=== PATIENT | female | born 1960 | race American Indian/Alaskan Native ===

== ENCOUNTER 2017-01-19 13:17 | Emergency (ER) | payer OTHER ==
[2017-01-19 14:50] LABS: Basophils % (Auto) 0.4 % (0.0-1.8); Eosinophils % (Auto) 0.3 % (0.0-4.3); Hematocrit 51.2 % (30.3-42.9); Hemoglobin 16.5 gm/dl (10.1-14.3); Mean Corpuscular HGB Conc 32 % (30-34); Mean Corpuscular Hemoglobin 30 pg (28-32); Mean Corpuscular Volume 93 fl (79-97); Platelet Count 208 K/mm3 (140-440); Red Blood Count 5.53 M/mm3 (3.65-5.03); Red Cell Distribution Width 15.3 % (13.2-15.2); White Blood Count 10.6 K/mm3 (4.5-11.0)
[2017-01-19 15:33] LABS: Bacteria,Urine 4+ /HPF (Negative); Bilirubin,Urine NEG (Negative); Blood,Urine NEG (Negative); Ketones,Urine TR mg/dL (Negative); Leukocyte Esterase,Urine NEG (Negative); Mucus,Urine 3+ /HPF; Nitrite,Urine NEG (Negative); Red Blood Cell Casts,Urine 5 /LPF; Urobilinogen,Urine < 2.0 mg/dL (<2.0)
[2017-01-19 15:46] LABS: Alanine Aminotransferase 187 units/L (7-56); Albumin 4.6 g/dL (3.9-5); Albumin/Globulin Ratio 1.2 %; Alkaline Phosphatase 64 units/L (35-129); BUN/Creatinine Ratio 9.09; Bilirubin,Total 0.5 mg/dL (0.1-1.2); Blood Urea Nitrogen 10 mg/dL (7-17); Calcium 8.3 mg/dL (8.4-10.2); Carbon Dioxide 19 mmol/L (22-30); Glucose 92 mg/dL (65-100); Lipase 64 units/L (13-60); Total Protein 8.3 g/dL (6.3-8.2)
[2017-01-19 15:47] LABS: Anion Gap 23 mmol/L; Chloride 101.3 mmol/L (98-107); Potassium 3.6 mmol/L (3.6-5.0); Sodium 140 mmol/L (137-145)
[2017-01-19] MEDS ORDERED: NACL 0.9% 1000 ML 1,000 ML IV ONE (17:46)
--- NOTE | 2017-01-19 17:49 | Emergency Department Report ---
Chief Complaint: Abdominal Pain Stated Complaint: UNABLE TO EAT SOLID FOODS Time Seen by Provider: 01/19/17 17:46 - HPI History of Present Illness: PT c/o n/v/d since Tuesday. PT states it started after eating left overs for lunch. - ROS Review of Systems: + fever + n/v/d - dysuria - Exam Vital Signs: Vital Signs 01/19/17 14:05 Temperature 98.5 F Pulse Rate 136 H Respiratory 16 Rate Blood Pressure 107/74 O2 Sat by Pulse 98 Oximetry Physical Exam: pt looks well, non toxic. abd is soft and non-tender MSE screening note: Focused history and physical exam performed. Due to findings the following was ordered: labs reviewed US ordered. ED Medical Decision Making - Lab Data Result diagrams: 01/19/17 14:36 01/19/17 14:36 ED Disposition for MSE Condition: Stable Instructions: Abdominal Pain (ED)
--- NOTE | 2017-01-19 19:16 | Ultrasound Report ---
FINAL REPORT EXAM: US ABDOMEN LIMITED HISTORY: vomiting, elevated lfts TECHNIQUE: Directed sonography of the right upper quadrant. PRIORS: None. FINDINGS: Gallbladder is of normal size and echogenicity without evidence of calculi. Wall thickness within normal limits. Intra-and extrahepatic bile ducts are of normal caliber. Liver has diffusely increased echogenicity without focal abnormalities. Right kidney measures 12.2 cm in longest dimension and is grossly unremarkable. Visualized pancreatic parenchyma grossly unremarkable. IMPRESSION: 1. Findings compatible with fatty infiltration in the liver. 2. Otherwise, unremarkable.
[2017-01-19] MEDS ORDERED: NACL 0.9% 1000 ML 1,000 ML ONE (21:54)
[2017-01-19] MEDS ORDERED: DILAUDID IV ONE (22:50)
[2017-01-19] MEDS ORDERED: VITAMIN B-1 100 MG, FOLVITE 1 MG, INFUVITE 10 ML in NACL 0.9% 1000 ML 1,000 ML IV ONE (22:50)
[2017-01-19] MEDS ORDERED: ZOFRAN IV ONE (22:50)
--- NOTE | 2017-01-20 00:43 | Cat Scan Report ---
FINAL REPORT PROCEDURE: CT ABDOMEN PELVIS WO CON TECHNIQUE: Computerized axial tomography of the abdomen and pelvis was performed without intravenous contrast. This study is performed without intravascular contrast material and its sensitivity for abdominal and pelvic pathology, including neoplasms, inflammation, abscess, free fluid, thrombosis, arterial dissection and infarction, is reduced compared with a contrast enhanced study. HISTORY: n,v,d, abd pain epigastric pain COMPARISON: 09/10/2010 FINDINGS: Visualized lower thorax: There is a tiny calcified granuloma at the right lung base.. Liver: Normal size and attenuation. Spleen: Normal size and attenuation. Gallbladder and biliary system: Normal. Pancreas: Normal. Adrenals: Normal. Kidneys: There is a calcified cortical lesion in the left kidney measuring 9 millimeters. There is a 4 millimeter nonobstructing stone in the midpole the left kidney. These lesions are new since the prior study. There is no hydronephrosis. GI tract: There is no bowel obstruction, colitis or enteritis. The appendix is normal.. Lymph nodes and mesentery: Normal. Vasculature: Normal. Bladder: Normal. Reproductive organs: Uterus and ovaries are unremarkable.. Peritoneum: There is no ascites, free air, abscess or adenopathy.. Musculoskeletal structures: No significant abnormality. Other: None. IMPRESSION: There is a calcified cortical lesion in the left kidney measuring 9 millimeters. There is a 4 millimeter nonobstructing stone in the midpole the left kidney. These lesions are new since the prior study. There is no hydronephrosis. There is no bowel obstruction, colitis or enteritis. The appendix is normal.. Uterus and ovaries are unremarkable.. There is no ascites, free air, abscess or adenopathy. .
[2017-01-20] MEDS ORDERED: MAGNESIUM SULFATE 2GM/50ML 2 GM/50 ML BAG IV ONE (01:07)
--- NOTE | 2017-01-20 01:12 | Emergency Department Report ---
ED N/V/D HPI - General Chief complaint: Abdominal Pain Stated complaint: UNABLE TO EAT SOLID FOODS Time Seen by Provider: 01/19/17 17:46 Source: patient Mode of arrival: Ambulatory Limitations: No Limitations - History of Present Illness Initial comments: 56 yo female the past medical history of diabetes, GERD, hypertension, and hiatal hernia presents to the hospital complaints of abdominal pain, nausea, vomiting, and diarrhea since January 17. This complains of intermittent mid abdominal cramping as well as cramping to arms and legs. Pain is rated moderate to severe in intensity. Worse with palpation. No alleviating factors. Patient vomits when she eats food but is able to tolerate liquids but it causes her to have diarrhea shortly after any by mouth intake. Patient admits to daily alcohol use. She has a glass of liquor daily at night to help her sleep. She denies history of alcohol withdrawal seizures or tremors. No persistent hematemesis, melena, hematochezia, recent travel, fevers, sick contacts, or antibiotics. Previous abdominal surgery includes . Last alcohol drink was 4 days ago prior to symptom onset. - Related Data Previous Rx's Medication Instructions Recorded Last Taken Type Famotidine [Pepcid] 20 mg PO BID #20 tablet 01/20/17 Unknown Rx HYDROcodone/APAP 5-325 [[place] 1 each PO Q6HR PRN #15 tablet 01/20/17 Unknown Rx 5/325] Loperamide [Imodium] 2 mg PO Q2HR PRN #20 capsule 01/20/17 Unknown Rx Ondansetron [Zofran Odt] 4 mg PO Q8HR PRN #20 tab.rapdis 01/20/17 Unknown Rx hydrOXYzine PAMOATE [Vistaril] 50 mg PO QHS PRN #20 capsule 01/20/17 Unknown Rx Allergies Allergy/AdvReac Type Severity Reaction Status Date / Time Iodinated Contrast Media - AdvReac WHEEZING Verified 01/19/17 14:07 IV Dye ED Review of Systems ROS: Stated complaint: UNABLE TO EAT SOLID FOODS Other details as noted in HPI Comment: All other systems reviewed and negative Other: Constitutional: No fevers chills Eyes: No eye pain visual changes ENT: No ear pain or throat pain Neck: Denies pain Respiratory: Denies cough wheezing shortness of breath Cardiovascular: Denies chest pain, palpitations, syncope GI: As per HPI : Denies dysuria, urinary frequency, or urgency Musculoskeletal: Denies back pain, joint swelling Skin: Denies rash, lesions, erythema Neurologic: Denies headache, numbness, weakness Psychiatric: Denies suicidal ideation, hallucinations ED Past Medical Hx - Past Medical History Hx Hypertension: Yes Hx Diabetes: Yes Hx GERD: Yes Hx Arthritis: Yes Additional medical history: HIATAL HERNIA - Surgical History Hx Breast Surgery: Yes (BREAST REDUCTION) Additional Surgical History: . LEFT SHOULDER. GANGLIAN CYST REMOVED LEFT WRIST. TONSILLECTOMY. TUBAL LIGATION - Social History Smoking Status: Unknown if ever smoked Substance Use Type: None - Medications Home Medications: Home Medications Medication Instructions Recorded Confirmed Last Taken Type Famotidine [Pepcid] 20 mg PO BID #20 tablet 01/20/17 Unknown Rx HYDROcodone/APAP 5-325 [[place] 1 each PO Q6HR PRN #15 tablet 01/20/17 Unknown Rx 5/325] Loperamide [Imodium] 2 mg PO Q2HR PRN #20 capsule 01/20/17 Unknown Rx Ondansetron [Zofran Odt] 4 mg PO Q8HR PRN #20 tab.rapdis 01/20/17 Unknown Rx hydrOXYzine PAMOATE [Vistaril] 50 mg PO QHS PRN #20 capsule 01/20/17 Unknown Rx ED Physical Exam - General Limitations: No Limitations - Other Other exam information: General: No limitations, patient is alert in no acute distress Head exam: Atraumatic, normocephalic Eyes exam: Normal appearance, nonicteric sclera ENT: Moist mucous membrane, normal oropharynx Neck exam: Normal inspection, full range of motion, no meningismus nontender Respiratory exam: Clear to auscultation bilateral, no wheezes, rales, crackles Cardiovascular: Normal rate and rhythm, normal heart sounds Abdomen: Soft, nondistended, generalized tenderness greatest in the right upper quadrant, no rebound or guarding Extremity: Full range of motion normal inspection no deformity Back: Normal Inspection, full range of motion, no tenderness Neurologic: Alert, oriented x3, cranial nerves intact, no motor or sensory deficit Psychiatric: normal affect, normal mood Skin: Warm, dry, intact ED Course Vital Signs 01/19/17 01/19/17 01/19/17 14:05 21:42 22:50 Temperature 98.5 F Pulse Rate 136 H 104 H 96 H Respiratory 16 18 17 Rate Blood Pressure 107/74 Blood Pressure 137/86 115/76 [Left] O2 Sat by Pulse 98 100 98 Oximetry 01/20/17 01/20/17 01:53 02:52 Temperature Pulse Rate 82 Respiratory 18 18 Rate Blood Pressure Blood Pressure 105/70 [Left] O2 Sat by Pulse 100 Oximetry - Reevaluation(s) Reevaluation #1: 01/20/17 03:44 Patient reports much better with treatment. Tachycardia has improved. She received normal saline, Zofran, Dilaudid, banana bag, and IV magnesium. 01/20/17 03:44 ED Medical Decision Making - Lab Data Result diagrams: 01/19/17 14:36 01/19/17 14:36 Lab Results 01/19/17 01/19/17 01/19/17 Range/Units 14:36 14:36 14:36 WBC 10.6 (4.5-11.0) K/mm3 RBC 5.53 H (3.65-5.03) M/mm3 Hgb 16.5 H (10.1-14.3) gm/dl Hct 51.2 H (30.3-42.9) % MCV 93 (79-97) fl MCH 30 (28-32) pg MCHC 32 (30-34) % RDW 15.3 H (13.2-15.2) % Plt Count 208 (140-440) K/mm3 Lymph % (Auto) 31.3 (13.4-35.0) % [place] % (Auto) 8.6 H (0.0-7.3) % Eos % (Auto) 0.3 (0.0-4.3) % Baso % (Auto) 0.4 (0.0-1.8) % Lymph # 3.3 (1.2-5.4) K/mm3 [place] # 0.9 H (0.0-0.8) K/mm3 Eos # 0.0 (0.0-0.4) K/mm3 Baso # 0.0 (0.0-0.1) K/mm3 Seg Neutrophils % 59.4 (40.0-70.0) % Seg Neutrophils # 6.3 (1.8-7.7) K/mm3 Sodium 140 (137-145) mmol/L Potassium 3.6 (3.6-5.0) mmol/L Chloride 101.3 (98-107) mmol/L Carbon Dioxide 19 L (22-30) mmol/L Anion Gap 23 mmol/L BUN 10 (7-17) mg/dL Creatinine 1.1 (0.7-1.2) mg/dL Estimated GFR > 60 ml/min BUN/Creatinine Ratio 9.09 % Glucose 92 (65-100) mg/dL Calcium 8.3 L (8.4-10.2) mg/dL Magnesium 1.4 L (1.7-2.3) mg/dL Total Bilirubin 0.5 (0.1-1.2) mg/dL AST 504 H (5-40) units/L ALT 187 H (7-56) units/L Alkaline Phosphatase 64 (35-129) units/L Total Protein 8.3 H (6.3-8.2) g/dL Albumin 4.6 (3.9-5) g/dL Albumin/Globulin Ratio 1.2 % Lipase 64 H (13-60) units/L Urine Color (Yellow) Urine Turbidity (Clear) Urine pH (5.0-7.0) Ur Specific [place] (1.003-1.030) Urine Protein (Negative) mg/dL Urine Glucose (UA) (Negative) mg/dL Urine Ketones (Negative) mg/dL Urine Blood (Negative) Urine Nitrite (Negative) Urine Bilirubin (Negative) Urine Urobilinogen (<2.0) mg/dL Ur Leukocyte Esterase (Negative) Urine WBC (Auto) (0.0-6.0) /HPF Urine RBC (Auto) (0.0-6.0) /HPF U Epithel Cells (Auto) (0-13.0) /HPF Urine Bacteria (Auto) (Negative) /HPF Hyaline Casts /LPF RBC Casts /LPF Urine Mucus /HPF 01/19/ Range/Units 15:17 WBC (4.5-11.0) K/mm3 RBC (3.65-5.03) M/mm3 Hgb (10.1-14.3) gm/dl Hct (30.3-42.9) % MCV (79-97) fl MCH (28-32) pg MCHC (30-34) % RDW (13.2-15.2) % Plt Count (140-440) K/mm3 Lymph % (Auto) (13.4-35.0) % [place] % (Auto) (0.0-7.3) % Eos % (Auto) (0.0-4.3) % Baso % (Auto) (0.0-1.8) % Lymph # (1.2-5.4) K/mm3 [place] # (0.0-0.8) K/mm3 Eos # (0.0-0.4) K/mm3 Baso # (0.0-0.1) K/mm3 Seg Neutrophils % (40.0-70.0) % Seg Neutrophils # (1.8-7.7) K/mm3 Sodium (137-145) mmol/L Potassium (3.6-5.0) mmol/L Chloride (98-107) mmol/L Carbon Dioxide (22-30) mmol/L Anion Gap mmol/L BUN (7-17) mg/dL Creatinine (0.7-1.2) mg/dL Estimated GFR ml/min BUN/Creatinine Ratio % Glucose (65-100) mg/dL Calcium (8.4-10.2) mg/dL Magnesium (1.7-2.3) mg/dL Total Bilirubin (0.1-1.2) mg/dL AST (5-40) units/L ALT (7-56) units/L Alkaline Phosphatase (35-129) units/L Total Protein (6.3-8.2) g/dL Albumin (3.9-5) g/dL Albumin/Globulin Ratio % Lipase (13-60) units/L Urine Color [place] (Yellow) Urine Turbidity Cloudy (Clear) Urine pH 5.0 (5.0-7.0) Ur Specific [place] 1.030 (1.003-1.030) Urine Protein 100 mg/dl (Negative) mg/dL Urine Glucose (UA) Neg (Negative) mg/dL Urine Ketones Tr (Negative) mg/dL Urine Blood Neg (Negative) Urine Nitrite Neg (Negative) Urine Bilirubin Neg (Negative) Urine Urobilinogen < 2.0 (<2.0) mg/dL Ur Leukocyte Esterase Neg (Negative) Urine WBC (Auto) 1.0 (0.0-6.0) /HPF Urine RBC (Auto) 2.0 (0.0-6.0) /HPF U Epithel Cells (Auto) 15.0 H (0-13.0) /HPF Urine Bacteria (Auto) 4+ (Negative) /HPF Hyaline Casts 13 /LPF RBC Casts 5 /LPF Urine Mucus 3+ /HPF - Radiology Data Radiology results: report reviewed (ct a/p noncontrast: calcified cortical lesion in the left kidney 9mm, 4 mm nonobstructing stone. These are new since last study. No other significant findings) - Medical Decision Making Patient has elevated LFTs specifically AST over ALT which correlates with patient's daily alcohol use. Patient was counseled on the importance of decreasing or stopping her alcohol use. Outpatient mental health will be provided since patient is having trouble sleeping and stress. Outpatient follow -up will be recommended as well with primary care doctor. Medications will be prescribed for patient's acute gastroenteritis - Differential Diagnosis gastroenteritis, pancreatitis, hepatitis, alcohol abuse Critical Care Time: No Critical care attestation.: If time is entered above; I have spent that time in minutes in the direct care of this critically ill patient, excluding procedure time. ED Disposition Clinical Impression: Acute gastroenteritis, Alcohol abuse, daily use, Elevated liver enzymes, Hypomagnesemia, Calculus of left kidney Disposition: DISCHARGED TO HOME OR SELFCARE Is pt being admited?: No Does the pt Need Aspirin: No Condition: Stable Instructions: Gastroenteritis (ED), Abuse of Alcohol (ED), Hypomagnesemia (ED) , Kidney Stones (ED) Additional Instructions: Take the medication as prescribed and return if symptoms worsen. Follow-up with the clinic and/or doctors provided. Prescriptions: Famotidine [Pepcid] 20 mg PO BID #20 tablet HYDROcodone/APAP 5-325 [[place] 5/325] 1 each PO Q6HR PRN #15 tablet PRN Reason: Pain hydrOXYzine PAMOATE [Vistaril] 50 mg PO QHS PRN #20 capsule PRN Reason: Insomnia Loperamide [Imodium] 2 mg PO Q2HR PRN #20 capsule PRN Reason: Diarrhea Ondansetron [Zofran Odt] 4 mg PO Q8HR PRN #20 tab.rapdis PRN Reason: Nausea And Vomiting Referrals: PRIMARY CARE, [Primary Care Provider] - 3-5 Days MARIMAR HOLT MD [Staff Physician] - 3-5 Days [facility] [Outside] - 3-5 Days Time of Disposition: 03:53
[2017-01-20 02:53] VITALS: BP 105/70
== END 2017-01-20 04:00 | disposition home or self-care (01) ==
LOC: ED 13:17
DX: K52.9 Noninfective gastroenteritis and colitis, unspecified (principal); F10.10 Alcohol abuse, uncomplicated; E83.42 Hypomagnesemia; N20.0 Calculus of kidney; E78.89 Other lipoprotein metabolism disorders; I10 Essential (primary) hypertension; E11.9 Type 2 diabetes mellitus without complications; M19.90 Unspecified osteoarthritis, unspecified site; K21.9 Gastro-esophageal reflux disease without esophagitis; K44.9 Diaphragmatic hernia without obstruction or gangrene; Z90.89 Acquired absence of other organs; Z88.8 Allergy status to other drugs, medicaments and biological substances
CPT/HCPCS: 36415; 74176; 76705; 80053; 81001; 83690; 83735; 85025; 96361; 96365; 96367; 96375; 99284; J1170; J2405; J3411; J3475; J7030

== ENCOUNTER 2017-10-20 14:11 | Outpatient (CLI) | payer OTHER ==
--- NOTE | 2017-10-20 16:27 | Mammography Report ---
BILATERAL DIGITAL SCREENING MAMMOGRAM with CAD: 10/20/17 14:11:00 CLINICAL: Routine screening. COMPARISON: 07/10/10 FINDINGS: There are bilateral scattered areas of fibroglandular density.No mass, architectural distortion or suspicious calcifications. IMPRESSION: No mammographic evidence of malignancy. BI-RADS CATEGORY: 2 -- Benign RECOMMENDATION: Routine mammographic screening in one year. COMMENT: Patient follow-up letters are generated by our [employer] application.
== END 2017-10-20 14:12 | disposition home or self-care (01) ==
LOC: MAMMO 14:11
PROVIDERS: ATTEND Internal Medicine
DX: Z12.31 Encounter for screening mammogram for malignant neoplasm of breast (principal)
CPT/HCPCS: 77067; G0202

== ENCOUNTER 2018-10-27 10:50 | Outpatient (CLI) | payer OTHER ==
--- NOTE | 2018-10-27 14:40 | Mammography Report ---
BILATERAL DIGITAL SCREENING MAMMOGRAM with CAD: 10/27/18 10:50:00 CLINICAL: Routine screening. COMPARISON:10/20/17 FINDINGS: There are scattered areas of fibroglandular density.A few bilateral scattered benign calcifications. No mass, architectural distortion or suspicious calcifications. IMPRESSION: No mammographic evidence of malignancy. BI-RADS CATEGORY: 2 -- Benign RECOMMENDATION: Routine mammographic screening in one year. COMMENT: Patient follow-up letters are generated by our [employer] application.
== END 2018-10-27 10:51 | disposition home or self-care (01) ==
LOC: MAMMO 10:50
PROVIDERS: ATTEND Internal Medicine
DX: Z12.31 Encounter for screening mammogram for malignant neoplasm of breast (principal); I10 Essential (primary) hypertension; K21.9 Gastro-esophageal reflux disease without esophagitis; M19.90 Unspecified osteoarthritis, unspecified site
CPT/HCPCS: 77067

== ENCOUNTER 2018-12-17 09:23 | Emergency (ER) | payer OTHER ==
[2018-12-17 09:30] VITALS: BP 191/107
--- NOTE | 2018-12-17 09:41 | Emergency Department Report ---
ED Recheck HPI - General Chief Complaint: Recheck/Abnormal Lab/Rx Stated Complaint: LOW POTASSIUM Time Seen by Provider: 12/17/18 09:38 Source: patient Mode of arrival: Ambulatory Limitations: No Limitations - History of Present Illness Initial Comments: states had routine labs Tuesday called and told to come to ED due to low K unsure of level feels fine, no complaints, no recent illness no diuretics normally takes losartan but has not yet today Complaint: abnormal lab -: Gradual, days(s) Returns Today for: CBOAL Description of Abnormal Result: hypoK Symptoms Since Prior Visit: no new symptoms Associated Symptoms: none - Related Data Previous Rx's Medication Instructions Recorded Last Taken Type Famotidine [Pepcid] 20 mg PO BID #20 tablet 01/20/17 Unknown Rx HYDROcodone/APAP 5-325 [[place] 1 each PO Q6HR PRN #15 tablet 01/20/17 Unknown Rx 5/325] Loperamide [Imodium] 2 mg PO Q2HR PRN #20 capsule 01/20/17 Unknown Rx Ondansetron [Zofran Odt] 4 mg PO Q8HR PRN #20 tab.rapdis 01/20/17 Unknown Rx hydrOXYzine PAMOATE [Vistaril] 50 mg PO QHS PRN #20 capsule 01/20/17 Unknown Rx Magnesium Chloride [Slow-Mag] 143 mg PO DAILY #60 tablet.dr 12/17/18 Unknown Rx Potassium Chloride [Klor-Con M20] 20 meq PO DAILY #5 tab.er.prt 12/17/18 Unknown Rx Allergies Allergy/AdvReac Type Severity Reaction Status Date / Time Iodinated Contrast- Oral and AdvReac WHEEZING Verified 01/19/17 14:07 IV Dye [Iodinated Contrast Media - IV Dye] ED Review of Systems ROS: Stated complaint: LOW POTASSIUM Other details as noted in HPI Comment: All other systems reviewed and negative Constitutional: denies: chills, fever ENT: denies: ear pain, throat pain Respiratory: denies: cough, shortness of breath Cardiovascular: denies: chest pain, palpitations Endocrine: no symptoms reported Gastrointestinal: denies: abdominal pain, nausea, vomiting, diarrhea Neurological: denies: headache, weakness, paresthesias ED Past Medical Hx - Past Medical History Previous Medical History?: Yes Hx Hypertension: Yes Hx Diabetes: Yes Hx GERD: Yes Hx Arthritis: Yes Additional medical history: HIATAL HERNIA - Surgical History Past Surgical History?: Yes Hx Breast Surgery: Yes (BREAST REDUCTION) Additional Surgical History: . LEFT SHOULDER. GANGLIAN CYST REMOVED LEFT WRIST. TONSILLECTOMY. TUBAL LIGATION - Social History Smoking Status: Never Smoker Substance Use Type: None - Medications Home Medications: Home Medications Medication Instructions Recorded Confirmed Last Taken Type Famotidine [Pepcid] 20 mg PO BID #20 tablet 01/20/17 Unknown Rx HYDROcodone/APAP 5-325 [[place] 1 each PO Q6HR PRN #15 tablet 01/20/17 Unknown Rx 5/325] Loperamide [Imodium] 2 mg PO Q2HR PRN #20 capsule 01/20/17 Unknown Rx Ondansetron [Zofran Odt] 4 mg PO Q8HR PRN #20 tab.rapdis 01/20/17 Unknown Rx hydrOXYzine PAMOATE [Vistaril] 50 mg PO QHS PRN #20 capsule 01/20/17 Unknown Rx Magnesium Chloride [Slow-Mag] 143 mg PO DAILY #60 tablet.dr 12/17/18 Unknown Rx Potassium Chloride [Klor-Con M20] 20 meq PO DAILY #5 tab.er.prt 12/17/18 Unknown Rx ED Physical Exam - General Limitations: No Limitations General appearance: alert, in no apparent distress - Head Head exam: Present: atraumatic, normocephalic - Eye Eye exam: Present: normal appearance - ENT ENT exam: Present: mucous membranes moist - Neck Neck exam: Present: normal inspection - Respiratory Respiratory exam: Present: normal lung sounds bilaterally. Absent: respiratory distress - Cardiovascular Cardiovascular Exam: Present: regular rate, normal rhythm. Absent: systolic murmur, diastolic murmur, rubs, gallop - GI/Abdominal GI/Abdominal exam: Present: soft, normal bowel sounds - Extremities Exam Extremities exam: Present: normal inspection - Back Exam Back exam: Present: normal inspection - Neurological Exam Neurological exam: Present: alert, oriented X3 - Psychiatric Psychiatric exam: Present: normal affect, normal mood - Skin Skin exam: Present: warm, dry, intact, normal color. Absent: rash ED Course Vital Signs 12/17/18 09:30 Temperature 98.4 F Pulse Rate 106 H Respiratory 16 Rate Blood Pressure 191/107 [Right] O2 Sat by Pulse 94 Oximetry ED Recheck MDM - Differential Diagnosis Recheck of Abnormal Lab - Medical Decision Making Pt sent for hypoK no complaints normal exam will check BMP, magnesium manage accordingly K 3.1 Mg 1.0 asymptomatic recommend SlowMag, K+ supplement FU PCP this week for recheck Critical care attestation.: If time is entered above; I have spent that time in minutes in the direct care of this critically ill patient, excluding procedure time. ED Disposition Clinical Impression: Hypokalemia, Hypomagnesemia Disposition: TO HOME OR SELFCARE Is pt being admited?: No Condition: Good Instructions: Hypokalemia (ED) Prescriptions: Magnesium Chloride [Slow-Mag] 143 mg PO DAILY #60 tablet. Potassium Chloride [Klor-Con M20] 20 meq PO DAILY #5 tab.er.prt Referrals: RUIZ COTA MD [Primary Care Provider] - 3-5 Days Time of Disposition: 11:32
[2018-12-17 11:07] LABS: BUN/Creatinine Ratio 13; Blood Urea Nitrogen 9 mg/dL (7-17); Calcium 9.1 mg/dL (8.4-10.2); Hemolysis Index 37
[2018-12-17] MEDS ORDERED: K-DUR PO ONE (11:10)
== END 2018-12-17 11:51 | disposition home or self-care (01) ==
LOC: ED 09:23
DX: E87.6 Hypokalemia (principal); E83.42 Hypomagnesemia; I10 Essential (primary) hypertension; E11.9 Type 2 diabetes mellitus without complications; K21.9 Gastro-esophageal reflux disease without esophagitis; M19.90 Unspecified osteoarthritis, unspecified site; Z90.89 Acquired absence of other organs; Z98.51 Tubal ligation status; Z91.041 Radiographic dye allergy status
CPT/HCPCS: 36415; 80048; 83735; 99283

== ENCOUNTER 2019-01-17 14:33 | Emergency (ER) | payer OTHER ==
--- NOTE | 2019-01-17 14:52 | Emergency Department Report ---
Blank Doc - Documentation Documentation: This is a 58-year-old female that presents with right sided arm pain fall. This initial assessment/diagnostic orders/clinical plan/treatment(s) is/are subject to change based on patient's health status, clinical progression and re- assessment by fellow clinical providers in the ED. Further treatment and workup at subsequent clinical providers discretion. Patient/guardians urged not to elope from the ED as their condition may be serious if not clinically assessed and managed. Initial orders include: 1- Patient sent to [facility] for further evaluation and treatment 2- xray
[2019-01-17 14:54] VITALS: BP 137/85
--- NOTE | 2019-01-17 16:31 | XRay Report ---
PROCEDURE: XR HUMERUS 2+V RT TECHNIQUE: AP and lateral views of the right humerus HISTORY: Right humeral pain s/p fall COMPARISONS: None . FINDINGS: There is no evidence for acute fracture or dislocation. No soft tissue swelling or radiopaque foreign bodies are seen. Bony mineralization is normal and joint spaces are maintained. IMPRESSION: No acute bony or soft tissue abnormality noted. This document is electronically signed by Kelly Lopez MD., January 17 2019 04:29:30 PM ET
--- NOTE | 2019-01-17 16:32 | XRay Report ---
PROCEDURE: XR SHOULDER 2+V RT TECHNIQUE: AP, Y, and oblique views of the right shoulder HISTORY: pain in the right shoulder COMPARISONS: None . FINDINGS: There is no evidence of acute fracture or dislocation. The bony mineralization is normal. Soft tissue s are unremarkable. There is mild narrowing of the glenohumeral and acromiohumeral joints. There is spurring superiorly a nd inferiorly off the AC joint IMPRESSION: No acute abnormality identified in the right shoulder. osteoarthritis of the glenohumeral, acromiohum eral, and AC joints This document is electronically signed by Kelly Lopez MD., January 17 2019 04:30:58 PM ET
--- NOTE | 2019-01-17 16:34 | XRay Report ---
PROCEDURE: XR FOREARM RT TECHNIQUE: AP and lateral views of the right forearm HISTORY: pain in the right forearm COMPARISONS: None . FINDINGS: There is no evidence for acute fracture or dislocation. No soft tissue swelling or radiopaque foreign bodies are seen. Bony mineralization is normal and joint spaces are maintained. IMPRESSION: No acute bony or soft tissue abnormality noted. This document is electronically signed by Kelly Lopez MD., January 17 2019 04:32:33 PM ET
== END 2019-01-17 18:02 | disposition left against medical advice (07) ==
LOC: ED 14:33
DX: M79.601 Pain in right arm (principal); Z53.21 Procedure and treatment not carried out due to patient leaving prior to being seen by health care provider

== ENCOUNTER 2019-11-02 12:51 | Outpatient (CLI) | payer OTHER ==
--- NOTE | 2019-11-05 13:32 | Mammography Report ---
DIGITAL SCREENING MAMMOGRAM WITH CAD, 11/02/2019 INDICATION: Routine screening mammography. TECHNIQUE: Digital bilateral 2D mammography was obtained in the craniocaudal and mediolateral obliq ue projections. This examination was interpreted with the benefit of Computer-Aided Detection analysi s. COMPARISON: 10/27/2018 FINDINGS: Breast Density: There are scattered areas of fibroglandular density. There is no evidence of dominant mass, suspicious calcifications or architectural distortion in eithe r breast. Scattered bilateral benign calcifications. IMPRESSION: No mammographic evidence of malignancy. Follow up recommendation: Routine yearly BI-RADS Category 2: Benign. A "normal" or negative report should not discourage follow up or biopsy of a clinically significant f inding. A written summary of these findings will be mailed to the patient. The patient will be entered into a mammography reporting system which will generate a reminder letter for the patient's next appointmen t at the appropriate interval. The [employer] recommends yearly mammograms starting at age 40 and continuing as l humza as a woman is in good health. Breast MRI is recommended for women with an approximate 20-25% or greater lifetime risk of breast cancer, including women with a strong family history of breast or ova taya cancer or who have been treated for Hodgkin's disease. Signer Name: Sammy Dueñas MD Signed: 11/05/2019 1:27 PM Workstation Name: [id number]
== END 2019-11-02 12:52 | disposition home or self-care (01) ==
LOC: MAMMO 12:51
PROVIDERS: ATTEND Internal Medicine
DX: Z12.31 Encounter for screening mammogram for malignant neoplasm of breast (principal); N64.89 Other specified disorders of breast
CPT/HCPCS: 77067

== ENCOUNTER 2020-01-14 03:51 | Emergency (ER) | payer OTHER ==
[2020-01-14 04:35] LABS: Basophils # (Auto) 0.1 K/mm3 (0.0-0.1); Basophils % (Auto) 0.6 % (0.0-1.8); Eosinophils # (Auto) 0.1 K/mm3 (0.0-0.4); Eosinophils % (Auto) 0.6 % (0.0-4.3); Hematocrit 38.1 % (30.3-42.9); Hemoglobin 12.8 gm/dl (10.1-14.3); Lymphocytes # (Auto) 2.2 K/mm3 (1.2-5.4); Lymphocytes % (Auto) 19.5 % (13.4-35.0); Mean Corpuscular HGB Conc 34 % (30-34); Mean Corpuscular Volume 97 fl (79-97); Monocytes % (Auto) 8.9 % (0.0-7.3); Platelet Count 221 K/mm3 (140-440); Red Blood Count 3.92 M/mm3 (3.65-5.03)
[2020-01-14 04:50] LABS: BUN/Creatinine Ratio 23; Blood Urea Nitrogen 18 mg/dL (7-17); Calcium 10.4 mg/dL (8.4-10.2); Hemolysis Index 14
--- NOTE | 2020-01-14 05:05 | XRay Report ---
CHEST 1 VIEW INDICATION / CLINICAL INFORMATION: Chest Pain, shortness of breath. COMPARISON: None available. FINDINGS: SUPPORT DEVICES: None. HEART / MEDIASTINUM: No significant abnormality. LUNGS / PLEURA: No significant pulmonary or pleural abnormality. No pneumothorax. ADDITIONAL FINDINGS: No significant additional findings. IMPRESSION: No acute pulmonary or pleural abnormality Signer Name: Paulo Gerardo MD FACR Signed: 01/14/2020 5:01 AM Workstation Name: [id number]
[2020-01-14] MEDS ORDERED: DEXTROSE 50% IN WATER (25GM) 50 ML SYRINGE IV ONE ×2 (06:30→06:33)
--- NOTE | 2020-01-14 06:52 | Emergency Department Report ---
HPI - HPI HPI: Room 17 The patient is a 59-year-old female presenting with a chief complaint of shortness of breath and dizziness. Patient states her symptoms began yesterday while lying down she states she felt dizzy and short of breath. Patient denies dyspnea on exertion but states her legs felt like "noodles" when walking. Patient denies chest pain, cough or fever. Patient denies nausea vomiting or recent flights/long car trips <KIM GONZALEZ - Last Filed: 01/14/20 12:26> <WAI SILVA - Last Filed: 01/14/20 17:15> - General Chief Complaint: Dyspnea/Respdistress Time Seen by Provider: 01/14/20 06:33 ED Past Medical Hx - Past Medical History Previous Medical History?: Yes Hx Hypertension: Yes Hx Diabetes: Yes Hx GERD: Yes Hx Arthritis: Yes Additional medical history: HIATAL HERNIA - Surgical History Past Surgical History?: Yes Hx Breast Surgery: Yes (BREAST REDUCTION) Additional Surgical History: . LEFT SHOULDER. GANGLIAN CYST REMOVED LEFT WRIST. TONSILLECTOMY. TUBAL LIGATION - Family History Family history: no significant - Social History Smoking Status: Former Smoker (None x25 years) Substance Use Type: None (Denies illicit drug use), Alcohol (Occasional) <KIM GONZALEZ - Last Filed: 01/14/20 12:26> <WAI SILVA - Last Filed: 01/14/20 17:15> - Medications Home Medications: Home Medications Medication Instructions Recorded Confirmed Last Taken Type Loperamide [Imodium] 2 mg PO Q2HR PRN #20 capsule 01/20/17 01/14/20 Unknown Rx Omeprazole 20 mg PO DAILY 01/14/20 01/14/20 01/13/20 History Sodium Bicarbonate PO BID 01/14/20 01/13/20 History ED Review of Systems ROS: Stated complaint: CURTIS Other details as noted in HPI Constitutional: denies: fever Eyes: denies: eye pain ENT: denies: throat pain Respiratory: shortness of breath. denies: cough, SOB with exertion Cardiovascular: denies: chest pain Endocrine: no symptoms reported Gastrointestinal: denies: abdominal pain, nausea, vomiting Genitourinary: denies: dysuria Musculoskeletal: denies: back pain Neurological: denies: headache <KIM GONZALEZ - Last Filed: 01/14/20 12:26> ROS: Stated complaint: CURTIS Other details as noted in HPI <WAI SILVA - Last Filed: 01/14/20 17:15> Physical Exam - Physical Exam Vital Signs: Vital Signs 01/14/20 01/14/20 01/14/20 03:57 05:56 06:01 Temperature 97.5 F L Pulse Rate 96 H 77 Respiratory 18 16 Rate Blood Pressure 165/97 149/78 O2 Sat by Pulse 99 32 L Oximetry 01/14/20 01/14/20 06:15 06:17 Temperature Pulse Rate 76 Respiratory 19 18 Rate Blood Pressure 149/78 O2 Sat by Pulse 97 94 Oximetry Physical Exam: GENERAL: The patient is well-developed well-nourished female lying on stretcher not appearing to be in acute distress. [] HEENT: Normocephalic. Atraumatic. Extraocular motions are intact. Patient has moist mucous membranes. NECK: Supple. Trachea midline CHEST/LUNGS: Clear to auscultation. There is no respiratory distress noted. HEART/CARDIOVASCULAR: Regular. There is no tachycardia. There is no gallop rub or murmur. ABDOMEN: Abdomen is soft, nontender. Patient has normal bowel sounds. There is no abdominal distention. SKIN: There is no rash. There is no edema. There is no diaphoresis. NEURO: The patient is awake, alert, and oriented. The patient is cooperative. The patient has normal speech MUSCULOSKELETAL:There is no evidence of acute injury. <ABHINAV GONZALEZKE Kade - Last Filed: 01/14/20 12:26> - Physical Exam Vital Signs: Vital Signs 01/14/20 01/14/20 01/14/20 03:57 05:56 06:01 Temperature 97.5 F L Pulse Rate 96 H 77 Respiratory 18 16 Rate Blood Pressure 165/97 149/78 O2 Sat by Pulse 99 32 L Oximetry 01/14/20 01/14/20 01/14/20 06:15 06:17 07:00 Temperature Pulse Rate 76 74 Respiratory 19 18 17 Rate Blood Pressure 149/78 147/83 O2 Sat by Pulse 97 94 100 Oximetry 01/14/20 01/14/20 01/14/20 07:15 07:30 07:45 Temperature 97.8 F Pulse Rate 80 90 78 Respiratory 24 16 18 Rate Blood Pressure 145/82 145/82 147/83 O2 Sat by Pulse 100 97 100 Oximetry 01/14/20 01/14/20 01/14/20 08:29 08:30 09:00 Temperature Pulse Rate 96 H 79 91 H Respiratory 17 17 21 Rate Blood Pressure 147/83 129/79 136/84 O2 Sat by Pulse 100 100 100 Oximetry 01/14/20 01/14/20 01/14/20 10:01 10:15 10:31 Temperature Pulse Rate 78 87 87 Respiratory 17 16 17 Rate Blood Pressure 128/70 149/96 149/96 O2 Sat by Pulse 100 100 Oximetry 01/14/20 01/14/20 01/14/20 10:45 11:01 12:00 Temperature Pulse Rate 91 H 94 H Respiratory 16 15 14 Rate Blood Pressure 149/96 119/61 118/74 O2 Sat by Pulse 100 100 100 Oximetry 01/14/20 13:13 Temperature Pulse Rate Respiratory Rate Blood Pressure 141/78 O2 Sat by Pulse Oximetry <WAI SILVA - Last Filed: 01/14/20 17:15> ED Course Vital Signs 01/14/20 01/14/20 01/14/20 03:57 05:56 06:01 Temperature 97.5 F L Pulse Rate 96 H 77 Respiratory 18 16 Rate Blood Pressure 165/97 149/78 O2 Sat by Pulse 99 32 L Oximetry 01/14/20 01/14/20 06:15 06:17 Temperature Pulse Rate 76 Respiratory 19 18 Rate Blood Pressure 149/78 O2 Sat by Pulse 97 94 Oximetry - Consultations Consultation #1: 01/14/20 12:09 Nephrology paged 01/14/20 12:[address] Dutta-recommends normal saline 1 L, Lasix 40 mg IV and Kayexalate 45 g and rechecking potassium. If potassium normalizes the patient may be discharged home <KIM GONZALEZ - Last Filed: 01/14/20 12:26> Vital Signs 01/14/20 01/14/20 01/14/20 03:57 05:56 06:01 Temperature 97.5 F L Pulse Rate 96 H 77 Respiratory 18 16 Rate Blood Pressure 165/97 149/78 O2 Sat by Pulse 99 32 L Oximetry 01/14/20 01/14/20 01/14/20 06:15 06:17 07:00 Temperature Pulse Rate 76 74 Respiratory 19 18 17 Rate Blood Pressure 149/78 147/83 O2 Sat by Pulse 97 94 100 Oximetry 01/14/20 01/14/20 01/14/20 07:15 07:30 07:45 Temperature 97.8 F Pulse Rate 80 90 78 Respiratory 24 16 18 Rate Blood Pressure 145/82 145/82 147/83 O2 Sat by Pulse 100 97 100 Oximetry 01/14/20 01/14/20 01/14/20 08:29 08:30 09:00 Temperature Pulse Rate 96 H 79 91 H Respiratory 17 17 21 Rate Blood Pressure 147/83 129/79 136/84 O2 Sat by Pulse 100 100 100 Oximetry 01/14/20 01/14/20 01/14/20 10:01 10:15 10:31 Temperature Pulse Rate 78 87 87 Respiratory 17 16 17 Rate Blood Pressure 128/70 149/96 149/96 O2 Sat by Pulse 100 100 Oximetry 01/14/20 01/14/20 01/14/20 10:45 11:01 12:00 Temperature Pulse Rate 91 H 94 H Respiratory 16 15 14 Rate Blood Pressure 149/96 119/61 118/74 O2 Sat by Pulse 100 100 100 Oximetry 01/14/20 13:13 Temperature Pulse Rate Respiratory Rate Blood Pressure 141/78 O2 Sat by Pulse Oximetry - Reevaluation(s) Reevaluation #1: 01/14/20 14:26 This patient has been observed in the emergency room for hours. She has been normoglycemic for hours, and has not had episodes of documented hypoxia. She is able to ambulate without difficulty. She also has normal renal function. Her EKG is unremarkable. I have rediscussed the case with nephrology on-call, Dr. morse. Patient was medicated for mild hyperkalemia in the context of normal renal function. We are both of the opinion that it would be reasonable to discharge the patient with instructions to hold her potassium supplementation, and follow-up in 24 hours for repeat basic metabolic panel. I have discussed this with the patient. Reevaluation #2: 01/14/20 17:15 Patient's potassium came back within normal limits. I recontacted the patient, and instructed her to follow-up in 7 days rather than tomorrow. We have reiterated instructions to hold potassium supplementation at this time. She verbalizes understanding. <SEROTOFF,WAI - Last Filed: 01/14/20 17:15> ED Medical Decision Making - Lab Data Result diagrams: 01/14/20 07:17 01/14/20 10:06 Laboratory Tests 01/14/20 01/14/20 01/14/20 04:20 04:20 04:20 WBC 11.4 H RBC 3.92 Hgb 12.8 Hct 38.1 MCV 97 MCH 33 H MCHC 34 RDW 14.0 Plt Count 221 Lymph % (Auto) 19.5 Owen % (Auto) 8.9 H Eos % (Auto) 0.6 Baso % (Auto) 0.6 Lymph # 2.2 Owen # 1.0 H Eos # 0.1 Baso # 0.1 Seg Neutrophils % 70.4 H Seg Neutrophils # 8.0 H D-Dimer Sodium 141 Potassium 4.8 Chloride 100.6 Carbon Dioxide 24 Anion Gap 21 BUN 18 H Creatinine 0.8 Estimated GFR > 60 BUN/Creatinine Ratio 23 Glucose 32 L* POC Glucose Calcium 10.4 H Troponin T < 0.010 NT-Pro-B Natriuret Pep 82.19 01/14/20 01/14/20 01/14/20 05:49 06:38 06:50 WBC RBC Hgb Hct MCV MCH MCHC RDW Plt Count Lymph % (Auto) Owen % (Auto) Eos % (Auto) Baso % (Auto) Lymph # Owen # Eos # Baso # Seg Neutrophils % Seg Neutrophils # D-Dimer 256.38 H Sodium Potassium Chloride Carbon Dioxide Anion Gap BUN Creatinine Estimated GFR BUN/Creatinine Ratio Glucose POC Glucose < 40 L < 40 L Calcium Troponin T NT-Pro-B Natriuret Pep 01/14/20 01/14/20 01/14/20 07:17 07:17 08:10 WBC 9.4 RBC 3.94 Hgb 12.8 Hct 38.5 MCV 98 H MCH 33 H MCHC 33 RDW 14.4 Plt Count 215 Lymph % (Auto) 16.4 Owen % (Auto) 8.2 H Eos % (Auto) 0.4 Baso % (Auto) 0.4 Lymph # 1.5 Owen # 0.8 Eos # 0.0 Baso # 0.0 Seg Neutrophils % 74.6 H Seg Neutrophils # 7.0 D-Dimer Sodium Potassium Chloride Carbon Dioxide Anion Gap BUN Creatinine Estimated GFR BUN/Creatinine Ratio Glucose POC Glucose 212 H Calcium Troponin T < 0.010 NT-Pro-B Natriuret Pep 01/14/20 01/14/20 01/14/20 08:59 09:35 10:06 WBC RBC Hgb Hct MCV MCH MCHC RDW Plt Count Lymph % (Auto) Owen % (Auto) Eos % (Auto) Baso % (Auto) Lymph # Owen # Eos # Baso # Seg Neutrophils % Seg Neutrophils # D-Dimer Sodium 135 L Potassium 6.0 H D Chloride 98.3 Carbon Dioxide 21 L Anion Gap 22 BUN 16 Creatinine 0.7 Estimated GFR > 60 BUN/Creatinine Ratio 23 Glucose 247 H POC Glucose 230 H Calcium 9.5 Troponin T < 0.010 NT-Pro-B Natriuret Pep 01/14/20 10:06 WBC RBC Hgb Hct MCV MCH MCHC RDW Plt Count Lymph % (Auto) Owen % (Auto) Eos % (Auto) Baso % (Auto) Lymph # Owen # Eos # Baso # Seg Neutrophils % Seg Neutrophils # D-Dimer Sodium Potassium 6.0 H Chloride Carbon Dioxide Anion Gap BUN Creatinine Estimated GFR BUN/Creatinine Ratio Glucose POC Glucose Calcium Troponin T NT-Pro-B Natriuret Pep - EKG Data -: EKG Interpreted by In EKG shows normal: sinus rhythm Rate: normal - EKG Data When compared to previous EKG there are: previous EKG unavailable Interpretation: other (No ischemic changes seen) - Radiology Data Radiology results: report reviewed (Chest x-ray, VQ scan), image reviewed (Chest x-ray, VQ scan) interpreted by me: Chest x-ray-no focal infiltrates, no pneumothorax Chest x-ray (read by radiologist)-no acute pulmonary or pleural abnormality VQ scan (read by radiologist)-low probability - Differential Diagnosis CHF, pneumothorax, pneumonia, PE, hypoglycemia <KIM GONZALEZ - Last Filed: 01/14/20 12:26> - Lab Data Result diagrams: 01/14/20 07:17 01/14/20 15:37 - EKG Data -: EKG Interpreted by Me EKG shows normal: sinus rhythm Rate: normal <WAI SILVA - Last Filed: 01/14/20 17:15> Critical care attestation.: If time is entered above; I have spent that time in minutes in the direct care of this critically ill patient, excluding procedure time. <KIM GONZALEZ - Last Filed: 01/14/20 12:26> Critical care attestation.: If time is entered above; I have spent that time in minutes in the direct care of this critically ill patient, excluding procedure time. <WAI SILVA - Last Filed: 01/14/20 17:15> ED Disposition <KIM GONZALEZ - Last Filed: 01/14/20 12:26> Is pt being admited?: No Does the pt Need Aspirin: No <WAI SILVA - Last Filed: 01/14/20 17:15> Clinical Impression: History of hypoglycemia, Serum potassium elevated, History of dyspnea Disposition: - TO HOME OR SELFCARE Condition: Stable Additional Instructions: Do not take your potassium supplementation medication. Avoid foods that are high in potassium, such as bananas. Drink 4 to 6 cups of water per day, and avoid consumption of alcohol. Continue the remainder of outpatient medications. Follow-up in 1 day / 24 hours for repeat basic metabolic panel/basic chemistry test to recheck potassium level. Patient may follow-up in the emergency room, with a primary care doctor, urgent care center. Avoid consumption of tobacco and cigarettes and secondhand exposure to tobacco and cigarettes. Please return to the emergency room right away with new, worsened or different symptoms, or symptoms not present on the initial emergency room evaluation. Also recommend follow-up with your primary care doctor within the next 7 to 10 days for complaint of shortness of breath. Recommend that patient hold diabetic medications, such as insulin, metformin, or any other medications that she is taking that may affect blood sugar, if she is taking diabetic medications. Referrals: RK MCKEON MD [Staff Physician] - 3-5 Days [facility] [Provider Group] - 3-5 Days [facility] [Provider Group] - 3-5 Days Forms: Work/School Release Form(ED)
[2020-01-14 07:32] LABS: Basophils % (Auto) 0.4 % (0.0-1.8); Eosinophils % (Auto) 0.4 % (0.0-4.3); Hematocrit 38.5 % (30.3-42.9); Hemoglobin 12.8 gm/dl (10.1-14.3); Lymphocytes # (Auto) 1.5 K/mm3 (1.2-5.4); Lymphocytes % (Auto) 16.4 % (13.4-35.0); Mean Corpuscular HGB Conc 33 % (30-34); Mean Corpuscular Volume 98 fl (79-97); Monocytes # (Auto) 0.8 K/mm3 (0.0-0.8); Monocytes % (Auto) 8.2 % (0.0-7.3); Platelet Count 215 K/mm3 (140-440); Red Blood Count 3.94 M/mm3 (3.65-5.03); Red Cell Distribution Width 14.4 % (13.2-15.2)
--- NOTE | 2020-01-14 08:33 | Nuclear Medicine Report ---
NUCLEAR MEDICINE VENTILATION/PERFUSION LUNG SCAN INDICATION / CLINICAL INFORMATION: Shortness of breath. Chest pain TECHNIQUE: 6.0 mCi of Xe-133 were given by inhalation. 4.5 mCi of Tc-99m MAA were given by IV. COMPARISON: Chest radiograph dated 01/14/2020 at 0445 hours. FINDINGS: VENTILATION: No significant ventilation defects. PERFUSION: No significant perfusion defects. ADDITIONAL FINDINGS: None. IMPRESSION: Low probability for pulmonary embolism. Signer Name: Rosas Julio Jr, MD Signed: 01/14/2020 8:29 AM Workstation Name: [id number]
[2020-01-14 09:40] LABS: BUN/Creatinine Ratio 23; Blood Urea Nitrogen 16 mg/dL (7-17); Calcium 9.5 mg/dL (8.4-10.2); Hemolysis Index 3
[2020-01-14] MEDS ORDERED: SODIUM POLYSTYRENE 15 GM/60 ML ORAL LIQD PO ONE (12:22)
[2020-01-14] MEDS ORDERED: FUROSEMIDE 40 MG/4 ML INJ IV ONE (12:22)
[2020-01-14] MEDS ORDERED: SODIUM CHLORIDE 0.9% 1000 ML 1,000 ML IV ONE (12:22)
[2020-01-14 16:38] VITALS: BP 124/81
== END 2020-01-14 16:50 | disposition home or self-care (01) ==
LOC: ED 03:51
DX: R06.02 Shortness of breath (principal); R42 Dizziness and giddiness; E78.5 Hyperlipidemia, unspecified; I10 Essential (primary) hypertension; E11.649 Type 2 diabetes mellitus with hypoglycemia without coma
CPT/HCPCS: 36415; 71045; 78582; 80048; 82962; 83880; 84132; 84484; 85025; 85379; 93005; 93010; 96361; 96374; 96375; 99284; A9540; A9558; J1940; J7030

== ENCOUNTER 2021-02-11 09:08 | Emergency (ER) | payer OTHER ==
[2021-02-11] MEDS ORDERED: SODIUM CHLORIDE 0.9% 1000 ML 1,000 ML IV ONE (10:33)
[2021-02-11] MEDS ORDERED: ONDANSETRON 4 MG/2 ML INJ IV ONE (10:33)
--- NOTE | 2021-02-11 10:38 | Emergency Department Report ---
ED Chest Pain HPI - General Chief Complaint: Chest Pain Stated Complaint: CHEST PAIN, BODY CRAMPS, DIABETES Time Seen by Provider: 02/11/21 10:22 Source: patient Mode of arrival: Ambulatory Limitations: No Limitations - History of Present Illness Initial Comments: This is a 60-year-old female who presents to the emergency department with a complaint of labile blood sugar, nausea with vomiting, abdominal discomfort, generalized chest pain, and some cramping pains. Patient says that she woke up yesterday morning and checked her blood sugar because she was feeling weak and it said that it was "low." She was able to nibble on some crackers and reche cked her blood sugar and it was 48. At this time the patient had started to develop some nausea with vomiting, but was able to drink some ruth mahesh. However, secondary to the nausea and vomiting she was unable to take her home medications. The patient went to sleep and woke up but her blood sugar was up to 330. Throughout the rest of the day the patient continued to have multiple episodes of nausea with vomiting. She woke up this morning and her blood sugar was 130. She has not had any further vomiting episodes but still remains nauseated, has upper abdominal pain, developed some generalized chest discomfort, and says that she is having cramping in her feet and legs. She does have a past medical history of xsd-iigdstg-jbsnkseib diabetes, GERD, hypertension. Her primary care physician is located in [place] but she has not been able to see them regarding her symptoms. No recent travel or sick contacts at home. She denies any dysuria, vaginal bleeding or discharge, diarrhea or constipation. She denies tobacco or illicit drug use. - Related Data Home Medications Medication Instructions Recorded Confirmed Last Taken Alogliptin Benzoate [Alogliptin] 25 mg PO DAILY 01/27/20 01/27/20 01/25/20 Aspirin [Adult Aspirin] 81 mg PO QDAY 01/27/20 01/27/20 01/25/20 AtorvaSTATin [Lipitor] 20 mg PO QHS 01/27/20 01/27/20 01/24/20 Cyanocobalamin (Vitamin B-12) 1,000 mcg PO DAILY 01/27/20 01/27/20 01/25/20 [Vitamin B-12] Losartan [Cozaar] 100 mg PO QDAY 01/29/20 01/29/20 Unknown Previous Rx's Medication Instructions Recorded Last Taken Type Ondansetron [Zofran Odt] 4 mg PO Q8HR PRN #12 tab.rapdis 02/11/21 Unknown Rx Allergies Allergy/AdvReac Type Severity Reaction Status Date / Time Iodinated Contrast Media AdvReac WHEEZING Verified 02/11/21 09:22 [Iodinated Contrast Media - IV Dye] Heart Score - HEART Score History: Slightly suspicious EKG: Normal Age: > 65 Risk factors: 1-2 risk factors Troponin: < normal limit HEART Score: 3 - EKG Read Time Time EKG Completed: 09:26 EKG Read Time: 09:30 - Critical Actions Critical Actions: 0-3 pts:0.9-1.7%risk of adverse cardiac event.Candidate for discharge ED Review of Systems ROS: Stated complaint: CHEST PAIN, BODY CRAMPS, DIABETES Other details as noted in HPI Comment: All other systems reviewed and negative Constitutional: denies: chills, fever Eyes: denies: eye pain, vision change ENT: denies: ear pain, throat pain Respiratory: denies: cough, shortness of breath Cardiovascular: chest pain. denies: palpitations, edema Gastrointestinal: abdominal pain, nausea, vomiting. denies: diarrhea, constipation Genitourinary: denies: dysuria, discharge Musculoskeletal: myalgia. denies: back pain, joint swelling Skin: denies: rash, lesions Neurological: headache. denies: numbness, paresthesias ED Past Medical Hx - Past Medical History Hx Hypertension: Yes Hx Heart Attack/AMI: No Hx Congestive Heart Failure: No Hx Diabetes: Yes Hx Deep Vein Thrombosis: No Hx GERD: Yes Hx Liver Disease: No Hx Arthritis: Yes Hx Asthma: No Hx COPD: No Hx HIV: No Additional medical history: HIATAL HERNIA - Surgical History Hx Coronary Stent: No Hx Pacemaker: No Hx Internal Defibrillator: No Hx Breast Surgery: Yes (BREAST REDUCTION) Additional Surgical History: . LEFT SHOULDER. GANGLIAN CYST REMOVED LEFT WRIST. TONSILLECTOMY. TUBAL LIGATION - Social History Smoking Status: Never Smoker Substance Use Type: None - Medications Home Medications: Home Medications Medication Instructions Recorded Confirmed Last Taken Type Alogliptin Benzoate [Alogliptin] 25 mg PO DAILY 01/27/20 01/27/20 01/25/20 History Aspirin [Adult Aspirin] 81 mg PO QDAY 01/27/20 01/27/20 01/25/20 History AtorvaSTATin [Lipitor] 20 mg PO QHS 01/27/20 01/27/20 01/24/20 History Cyanocobalamin (Vitamin B-12) 1,000 mcg PO DAILY 01/27/20 01/27/20 01/25/20 History [Vitamin B-12] Losartan [Cozaar] 100 mg PO QDAY 01/29/20 01/29/20 Unknown History Ondansetron [Zofran Odt] 4 mg PO Q8HR PRN #12 tab.rapdis 02/11/21 Unknown Rx ED Physical Exam - General Limitations: No Limitations - Other Other exam information: GENERAL: The patient is well-developed well-nourished. HENT: Normocephalic. Atraumatic. Patient has moist mucous membranes. EYES: Extraocular motions are intact. NECK: Supple. Trachea is midline. CHEST/LUNGS: Clear to auscultation. There is no respiratory distress noted. HEART/CARDIOVASCULAR: Regular. There is no tachycardia. There is no murmur. ABDOMEN: Abdomen is soft. Mild upper abdominal tenderness to palpation. No guarding. Patient has normal bowel sounds. There is no abdominal distention. SKIN: Skin is warm and dry. NEURO: The patient is awake, alert, and oriented. The patient is cooperative. The patient has no focal neurologic deficits. Normal speech. MUSCULOSKELETAL: There is no tenderness or deformity. There is no limitation range of motion. ED Course Vital Signs 02/11/21 02/11/21 02/11/21 09:17 10:00 10:16 Temperature 98.7 F 97.8 F Pulse Rate 133 H 79 Respiratory 18 17 20 Rate Blood Pressure 127/92 154/113 O2 Sat by Pulse 98 100 Oximetry 02/11/21 02/11/21 02/11/21 10:30 10:45 11:00 Temperature Pulse Rate 100 H 99 H 107 H Respiratory 22 32 H 24 Rate Blood Pressure 133/79 125/74 115/74 O2 Sat by Pulse 100 100 100 Oximetry 02/11/21 02/11/21 02/11/21 11:15 11:30 11:45 Temperature Pulse Rate 96 H 99 H 94 H Respiratory 18 17 17 Rate Blood Pressure 118/76 117/65 115/68 O2 Sat by Pulse 100 100 100 Oximetry 02/11/21 02/11/21 02/11/21 12:00 12:15 12:30 Temperature Pulse Rate 97 H 99 H 110 H Respiratory 17 20 21 Rate Blood Pressure 111/70 107/66 120/79 O2 Sat by Pulse 100 100 89 Oximetry 02/11/21 02/11/21 02/11/21 12:45 13:00 13:15 Temperature Pulse Rate 87 99 H 88 Respiratory 17 18 17 Rate Blood Pressure 113/69 113/69 108/66 O2 Sat by Pulse 100 97 100 Oximetry 02/11/21 02/11/21 13:30 13:45 Temperature Pulse Rate 101 H 88 Respiratory 16 16 Rate Blood Pressure 100/70 95/62 O2 Sat by Pulse 99 100 Oximetry RAKESH score - Rakesh Score Age > 65: (0) No Aspirin use within the Past 7 Days: (0) No 3 or more CAD Risk Factors: (0) No 2 or more Angina events in past 24 hrs: (1) Yes Known CAD with more than 50% Stenosis: (0) No Elevated Cardiac Markers: (0) No ST Deviation Greater than 0.5mm: (0) No RAKESH Score: 1 ED Medical Decision Making - Lab Data Result diagrams: 02/11/21 10:41 02/11/21 10:41 - EKG Data -: EKG Interpreted by Me EKG shows normal: sinus rhythm, axis, intervals, QRS complexes, ST-T waves Rate: tachycardia (111 bpm) - EKG Data When compared to previous EKG there are: no significant change Interpretation: unchanged when compared t (01/26/20) - Radiology Data Radiology results: report reviewed, image reviewed interpreted by me: Chest x-ray does not show any acute process. There are no pleural effusions, obvious pneumonia and there is no pneumothorax. No significant cardiomegaly. Abdominal x-ray shows nonspecific nonobstructive bowel gas. No free air. CT ABDOMEN AND PELVIS WITHOUT CONTRAST HISTORY: Abd pain, elevated lipase. COMPARISON: None. TECHNIQUE: CT images of the abdomen and pelvis were obtained without administration of intravenous contrast. All CT scans at this location are performed using CT dose reduction for ALARA by means of automated exposure control. FINDINGS: Lungs/bones: Lung bases are clear Abdomen/pelvis: There is diffuse fatty infiltration the liver. The liver is enlarged. Adrenal glands, pancreas and gallbladder appear normal. Cortical calcification within the left kidney measures 8 mm. No renal or ureteral obstruction stones. No hydronephrosis. Appendix appears normal. The uterus is enlarged with multiple uterine fibroids. Calcifications within the fibroid suggested. Urinary bladder appears normal. No free fluid is seen in the abdomen or pelvis. No acute bone findings are seen. No bowel obstruction. IMPRESSION: 1. Hepatomegaly with hepatic steatosis. 2. Uterine fibroids - Medical Decision Making Patient has complained of some labile blood sugar but it appears to be well controlled today. She says it was 130 at home this morning. It was 170 on serum blood draw. Patient's labs shows a mild leukocytosis of 14,000, mild renal insufficiency with a GFR of about 45 and an elevated lipase of 150. Regarding the patient's chest discomfort, EKG did not have any morphology consistent with ST elevation myocardial infarction or any arrhythmia. Chest x-ray did not show any pneumonia, pleural effusions, pneumothorax, or any other acute process. The patient has had a negative troponin. She is low on the heart and RAKESH score. Regarding her abdominal pain, there is some reproducible upper abdominal tenderness to palpation. Otherwise the abdomen is soft, nondistended and nontoxic in appearance. However, given the abdominal pain and the elevated lip ase level, along with the nausea and vomiting, the patient had a CT scan of the abdomen and pelvis without contrast to look into pancreatitis. No pancreatitis seen and the CT results show hepatic steatosis and uterine fibroids. Patient was given a dose of IV antiemetics and IV fluid resuscitation. Upon reevaluation she is feeling greatly improved. She was able to pass an oral challenge. Vital signs reassuring throughout her ED course including being afebrile. For all these reason she appears safe for discharge home at this time. Her contact information has been sent over to the [facility], and someone from their office should be contacting her shortly for close outpatient follow-up as per our hospitals low risk chest pain protocol. She has been instructed to follow-up with her primary care physician. We discussed the mild renal insufficiency. This may be secondary to her nausea and vomiting and some dehydration. She understands the importance of staying away from NSAIDs and that she may need to follow-up with nephrology. She will return to the emergency department with any worsening of her symptoms or with any acute distress. Critical Care Time: No Critical care attestation.: If time is entered above; I have spent that time in minutes in the direct care of this critically ill patient, excluding procedure time. ED Disposition Clinical Impression: Renal insufficiency, Hepatic steatosis, Atypical chest pain Nausea & vomiting Qualifiers: Vomiting type: unspecified Vomiting Intractability: non-intractable Qualified Code(s): R11.2 - Nausea with vomiting, unspecified Abdominal pain Qualifiers: Abdominal location: unspecified location Qualified Code(s): R10.9 - Unspecified abdominal pain Disposition: TO HOME OR SELFCARE Is pt being admited?: No Condition: Stable Instructions: Abdominal Pain, Adult, Nonspecific Chest Pain, Adult, Nausea and Vomiting, Adult, Fatty Liver Disease Additional Instructions: Please follow-up with your primary care physician in the next few days. I am sending your contact information over to the [facility], and someone from their office should be contacting you shortly for close outpatient follow-up. Just in case, I am giving you a referral for one of their lien searcher, Dr. Noel. I am giving you a referral for [facility] to follow-up regarding your abdominal pains and the CT findings of fatty liver disease. Please keep a blood pressure and blood sugar log. Return to the emergency department with any worsening of your symptoms, new or concerning symptoms not addressed during this current emergency department visit, or with any acute distress. Prescriptions: Ondansetron [Zofran Odt] 4 mg PO Q8HR PRN #12 tab.rapdis PRN Reason: Nausea Referrals: [facility] [Other] - 3-5 Days ANABELLE NOEL MD [Staff Physician] - 3-5 Days [facility] [Provider Group] - 3-5 Days Time of Disposition: 13:30
[2021-02-11 11:04] LABS: Basophils # (Auto) 0.1 K/mm3 (0.0-0.1); Basophils % (Auto) 0.6 % (0.0-1.8); Eosinophils # (Auto) 0.1 K/mm3 (0.0-0.4); Eosinophils % (Auto) 0.5 % (0.0-4.3); Hematocrit 39.5 % (30.3-42.9); Hemoglobin 12.9 gm/dl (10.1-14.3); Lymphocytes # (Auto) 1.2 K/mm3 (1.2-5.4); Lymphocytes % (Auto) 7.9 % (13.4-35.0); Mean Corpuscular HGB Conc 33 % (30-34); Mean Corpuscular Volume 87 fl (79-97); Monocytes # (Auto) 1.4 K/mm3 (0.0-0.8); Monocytes % (Auto) 9.1 % (0.0-7.3); Platelet Count 231 K/mm3 (140-440); Red Blood Count 4.53 M/mm3 (3.65-5.03); Red Cell Distribution Width 16.9 % (13.2-15.2)
[2021-02-11 11:25] LABS: Alanine Aminotransferase 51 units/L (7-56); Albumin 4.3 g/dL (3.9-5); BUN/Creatinine Ratio 20; Blood Urea Nitrogen 28 mg/dL (7-17); Calcium 8.3 mg/dL (8.4-10.2); Hemolysis Index 4
[2021-02-11 13:59] VITALS: BP 95/62
--- NOTE | 2021-02-11 14:12 | XRay Report ---
XR abd series w cxr 1V INDICATION / CLINICAL INFORMATION: Abd pain, CP. COMPARISON: 01/26/2020 FINDINGS: Chest: Low lung volumes without focal consolidation. There is mild cardiac enlargement without signif icant pulmonary vasculature congestion. No pneumothorax. Abdomen: Bowel gas pattern is nonobstructive. No free air. No suspicious calcifications seen. Bones: No acute osseous findings. IMPRESSION: No acute radiographic abnormality of the chest or abdomen. Signer Name: Moe Diaz MD Signed: 02/11/2021 10:57 AM Workstation Name: [id number]
--- NOTE | 2021-02-11 14:12 | Cat Scan Report ---
CT ABDOMEN AND PELVIS WITHOUT CONTRAST HISTORY: Abd pain, elevated lipase. COMPARISON: None. TECHNIQUE: CT images of the abdomen and pelvis were obtained without administration of intravenous co ntrast. All CT scans at this location are performed using CT dose reduction for ALARA by means of au tomated exposure control. FINDINGS: Lungs/bones: Lung bases are clear Abdomen/pelvis: There is diffuse fatty infiltration the liver. The liver is enlarged. Adrenal glands , pancreas and gallbladder appear normal. Cortical calcification within the left kidney measures 8 mm . No renal or ureteral obstruction stones. No hydronephrosis. Appendix appears normal. The uterus is enlarged with multiple uterine fibroids. Calcifications within the fibroid suggested. Urinary bladder appears normal. No free fluid is seen in the abdomen or pelvis. No acute bone findings are seen. No bowel obstruction. IMPRESSION: 1. Hepatomegaly with hepatic steatosis. 2. Uterine fibroids Signer Name: Ino Wong MD Signed: 02/11/2021 12:24 PM Workstation Name: [id number]
--- NOTE | 2021-02-12 09:35 | Electrocardiograph Report ---
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
--- NOTE | 2021-02-12 09:37 | Electrocardiograph Report ---
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
== END 2021-02-11 14:02 | disposition home or self-care (01) ==
LOC: ED 09:08
DX: K76.0 Fatty (change of) liver, not elsewhere classified (principal); N28.9 Disorder of kidney and ureter, unspecified; R10.10 Upper abdominal pain, unspecified; R11.2 Nausea with vomiting, unspecified; R07.89 Other chest pain; I10 Essential (primary) hypertension; E11.9 Type 2 diabetes mellitus without complications; K21.9 Gastro-esophageal reflux disease without esophagitis; M19.90 Unspecified osteoarthritis, unspecified site; Z98.890 Other specified postprocedural states; Z79.899 Other long term (current) drug therapy; Z91.041 Radiographic dye allergy status; Z98.51 Tubal ligation status
CPT/HCPCS: 36415; 74022; 74176; 80053; 83690; 84484; 85025; 93005; 96361; 96374; 99284; J2405; J7030

== ENCOUNTER 2021-02-27 09:15 | Outpatient (CLI) | payer OTHER ==
--- NOTE | 2021-02-27 10:30 | Mammography Report ---
DIGITAL SCREENING MAMMOGRAM WITH CAD, 02/27/2021 CLINICAL INFORMATION / INDICATION: Routine screening mammography. SCREENING MAMMO TECHNIQUE: Digital bilateral 2D mammography was obtained in the craniocaudal and mediolateral obliqu e projections. This examination was interpreted with the benefit of Computer-Aided Detection analysis . COMPARISON: 11/02/2019, 10/27/2018 FINDINGS: Breast Density: There are scattered areas of fibroglandular density. No dominant mass, suspicious calcifications, or architectural distortion in either breast. There are stable bilateral benign-appearing calcifications. IMPRESSION: No mammographic evidence of malignancy. Follow up recommendation: Routine yearly BI-RADS Category 2: Benign. A "normal" or negative report should not discourage follow up or biopsy of a clinically significant f inding. A written summary of these findings will be mailed to the patient. The patient will be entered into a mammography reporting system which will generate a reminder letter for the patient's next appointmen t at the appropriate interval. The [employer] recommends yearly mammograms starting at age 40 and continuing as l humza as a woman is in good health. Breast MRI is recommended for women with an approximate 20-25% or greater lifetime risk of breast cancer, including women with a strong family history of breast or ova taya cancer or who have been treated for Hodgkin's disease. Signer Name: Chet Boothe MD Signed: 02/27/2021 10:26 AM Workstation Name: [id number]
== END 2021-02-27 09:16 | disposition home or self-care (01) ==
LOC: MAMMO 09:15
PROVIDERS: ATTEND Internal Medicine
DX: Z12.31 Encounter for screening mammogram for malignant neoplasm of breast (principal); N64.89 Other specified disorders of breast
CPT/HCPCS: 77067

== ENCOUNTER 2021-12-10 07:20 | Day surgery (SDC) | payer OTHER ==
[2021-11-13 09:59] LABS: Hematocrit 39.1 % (30.3-42.9); Hemoglobin 12.7 gm/dl (10.1-14.3); Mean Corpuscular HGB Conc 33 % (30-34); Mean Corpuscular Volume 83 fl (79-97); Platelet Count 244 K/mm3 (140-440); Red Blood Count 4.69 M/mm3 (3.65-5.03); Red Cell Distribution Width 19.7 % (13.2-15.2)
[2021-11-13 10:19] LABS: Alanine Aminotransferase 51 units/L (7-56); Albumin 4.4 g/dL (3.9-5); Blood Urea Nitrogen 8 mg/dL (7-17); Calcium 9.3 mg/dL (8.4-10.2); Hemolysis Index 7
[2021-11-13 10:24] LABS: BUN/Creatinine Ratio 13
[2021-12-04 10:59] LABS: BUN/Creatinine Ratio 13; Blood Urea Nitrogen 12 mg/dL (7-17); Calcium 8.7 mg/dL (8.4-10.2); Hemolysis Index 14
[~2021-12-10 07:20] MED LIST: ACETAMINOPHEN 500 MG TAB PO SCH; FAMOTIDINE 20 MG/2 ML INJ IV NR; LACTATED RINGERS 1,000 ML IV SCH; MIDAZOLAM 2 MG/2 ML INJ IV NR; SCOPOLAMINE TRANSDERMAL PATCH 72 HR TD NR; ceFAZolin/Water 2 GM/20 ML 2 GM/20 ML SYRINGE IV NR; fentaNYL 100 MCG/2 ML INJ IV PRN
--- NOTE | 2021-12-10 07:52 | Anesthesia Day of Surgery ---
Anesthesia Day of Surgery - Day of Surgery Patient Examined: Yes Patient H&P Reviewed: Yes Patient is NPO: Yes
--- NOTE | 2021-12-10 07:52 | Anesthesia Consultation ---
Anesthesia Consult and Med Hx Date of service: 12/10/21 - Airway Anesthetic Teeth Evaluation: Good, Crowns ROM Head & Neck: Adequate Mental/Hyoid Distance: Adequate Mallampati Class: Class II Intubation Access Assessment: Probably Good - Pre-Operative Health Status ASA Pre-Surgery Classification: ASA3 Proposed Anesthetic Plan: General Nerve Block: IS - Pulmonary Hx Smoking: Yes (quit 30yrs ago) Hx Respiratory Symptoms: No - Cardiovascular System Hx Hypertension: Yes Hx Heart Attack/AMI: No - Central Nervous System CVA: No Hx Back Pain: Yes Hx Psychiatric Problems: Yes (PTSD) - Endocrine Hx Renal Disease: No Hx Non-Insulin Dependent Diabetes: Yes Hx Thyroid Disease: No - Other Systems Hx Obesity: No - Additional Comments Anesthesia Medical History Comments: No hx anesthetic complications.
[2021-12-10] MEDS ORDERED: ceFAZolin/STERILE WATER 2 GM/20 ML SYRINGE IV NR (08:00)
[2021-12-10] MEDS ORDERED: BUPIVACAINE/PF (0.25%) 2.5 MG/ML 30 ML VIAL INFILTRATI ONE ×2 (08:13→09:42)
[2021-12-10] MEDS ORDERED: dexAMETHasone 4 MG/ML VIAL ONE (08:13)
[2021-12-10 08:29] LABS: BUN/Creatinine Ratio 14; Blood Urea Nitrogen 13 mg/dL (7-17); Calcium 9.7 mg/dL (8.4-10.2); Hemolysis Index 6
[2021-12-10] MEDS ORDERED: ROCURONIUM 50 MG/5 ML INJ IV ONE (09:39)
[2021-12-10] MEDS ORDERED: ONDANSETRON 4 MG/2 ML INJ ONE (09:39)
[2021-12-10] MEDS ORDERED: propofoL 200 MG/20 ML VIAL IV ONE (09:39)
[2021-12-10] MEDS ORDERED: HYDROmorphone 1 MG/1 ML INJ ONE (09:39)
[2021-12-10] MEDS ORDERED: LIDOCAINE MPF (2%) 20 MG/1 ML VIAL 5 ML ONE (09:39)
[2021-12-10] MEDS ORDERED: EPINEPHrine 30 MG/30 ML INJ IV ONE (09:42)
[2021-12-10] MEDS ORDERED: EPINEPHrine 1 MG/10 ML SYRINGE IV ONE (11:23)
[2021-12-10] MEDS ORDERED: SODIUM CHLORIDE 0.9% IRRIG SOLN 2000 ML IR ONE ×2 (11:25)
[2021-12-10] MEDS ORDERED: SODIUM CHLORIDE P/F VIAL 10 ML 10 ML ONE (11:33)
[2021-12-10] MEDS ORDERED: PHENYLEPHRINE/NS 1,000 MCG/10 ML SYRINGE (OR USE) IV ONE (11:50)
[2021-12-10] MEDS ORDERED: GLYCOPYRROLATE 0.4 MG/2 ML INJ ONE (12:42)
[2021-12-10] MEDS ORDERED: NEOSTIGMINE 10MG/10 ML INJ MDV ONE (12:42)
[2021-12-10] MEDS ORDERED: LACTATED RINGERS 1,000 ML ONE (13:01)
--- NOTE | 2021-12-10 13:51 | Procedure Note ---
Date of procedure: 12/10/21 Pre-op diagnosis: Left shoulder pain rotator cuff tear Post-op diagnosis: same Procedure: Arthroscopy [Left] shoulder with subacromial decompression and rotator cuff tendon using suture anchor Procedure The patient was brought to the OR after being given a scalene nerve block for postop pain management . She was placed in the OR table in supine position following induction and intubation by anesthesia patient was placed in the right lateral decubitus position the [left] upper extremity was prepped and draped in the usual sterile manner. A timeout procedure was done to identify the patient and the correct operative site. Routine arthroscopic portals were made following introduction of the arthroscope and instruments and insufflation of the subacromial space with normal saline solution patient was noted to have a significant partial-thickness rotator cuff tear which extended from the supraspinatus anteriorly towards the infraspinatus posteriorly, in addition she was also noted to have abundant synovial bursal thickening as well as signific ant impingement from the acromion and acromioclavicular joints. Using a tissue ablator the soft tissue was removed from both the bursal tissues as well as the periosteal tissues overlying the distal acromion and acromioclavicular joints A large bur was used to debride the bony impingement again this was done under arthroscopic visualization. The anatomic footprint was then seen and debrided using the tissue ablator. The rotator cuff tendon was grasped using a tissue grasper and appeared to move well in the direction of anatomic repair at the footprint. Next 1 suture anchor suture were placed into these supraspinatus tendon anteriorly as well as the infraspinatus tendon posteriorly the suture anchors were secured into the greater tuberosity followed by tightening of the sutures and pulling the rotator cuff tendon firmly onto the anatomic footprint arthroscopic photographs were obtained showing good placement of the rotator cuff repair following this the wound was copiously irrigated via stab wounds were repaired with 2 postop dressings were applied the patient was extubated and was taken to postanesthesia recovery in stable condition. Anesthesia: LEWIS, regional Surgeon: VALENTINO MEDEROS (Viktor Brooks, 1st assist) Estimated blood loss: minimal Pathology: none Condition: stable Disposition: PACU
[2021-12-10 14:33] VITALS: BP 129/79
--- NOTE | 2021-12-10 15:07 | Post Anesthesia Evaluation ---
- Post Anesthesia Evaluation Patient Participated: Yes Airway Patent: Yes Stable Respiratory Function: Yes Nausea/Vomiting: No Temp > 96.8F: Yes Pain Manageable: Yes Adequeate Hydration: Yes Anesthesia Complications: No
== END 2021-12-10 15:05 | disposition home or self-care (01) ==
LOC: OR 07:20
PROVIDERS: ATTEND Orthopaedic Surgery
DX: M75.102 Unspecified rotator cuff tear or rupture of left shoulder, not specified as traumatic (principal); M75.42 Impingement syndrome of left shoulder; I10 Essential (primary) hypertension; K21.9 Gastro-esophageal reflux disease without esophagitis; M19.90 Unspecified osteoarthritis, unspecified site; E11.9 Type 2 diabetes mellitus without complications; F32.9 Major depressive disorder, single episode, unspecified; Z20.822 Contact with and (suspected) exposure to COVID-19; Z91.041 Radiographic dye allergy status; Z79.899 Other long term (current) drug therapy; Z79.82 Long term (current) use of aspirin; Z79.84 Long term (current) use of oral hypoglycemic drugs; Z72.89 Other problems related to lifestyle; Z87.891 Personal history of nicotine dependence; Z98.51 Tubal ligation status; Z87.442 Personal history of urinary calculi; Z98.890 Other specified postprocedural states
CPT/HCPCS: 29826; 29827; 36415; 64415; 80048; 80053; 82962; 85027; C1713; J0171; J0690; J1100; J1170; J1815; J2250; J2370; J2405; J2704; J2710; J3010; J3490; J7120; U0003; V2790; 64417